=== PATIENT | male | born 1985 | race Caucasian/White ===

== ENCOUNTER 2017-06-12 08:30 | Emergency (ER) | payer SELFPAY | END 2017-06-12 21:23 | disposition left against medical advice (07) | LOC: E/R 08:30 | DX: Z53.21 Procedure and treatment not carried out due to patient leaving prior to being seen by health care provider (principal) ==

== ENCOUNTER 2017-06-14 22:48 | Emergency (ER) | payer SELFPAY | END 2017-06-14 23:53 | disposition left against medical advice (07) | LOC: E/R 22:48 | DX: Z53.21 Procedure and treatment not carried out due to patient leaving prior to being seen by health care provider (principal) ==

== ENCOUNTER 2017-08-02 19:46 | Emergency (ER) | payer SELFPAY | END 2017-08-03 00:14 | disposition left against medical advice (07) | LOC: E/R 19:46 | DX: Z53.21 Procedure and treatment not carried out due to patient leaving prior to being seen by health care provider (principal) ==

== ENCOUNTER 2017-08-07 14:07 | Emergency (ER) | payer SELFPAY ==
[2017-08-07] MEDS: FAMOTIDINE 20 MG TAB PO (14:39)
[2017-08-07] MEDS: ONDANSETRON 4 MG INJ IV (14:39)
[2017-08-07] MEDS: SOD CHLORIDE 0.9% 1,000 ML IV (14:40)
[2017-08-07] MEDS: PANTOPRAZOLE 40 MG INJ IV (14:40)
[2017-08-07 14:43] LABS: ADD MAN DIFF? NO
[2017-08-07 14:46] LABS: WHITE BLOOD COUNT 4.6 10^3/ul (4.8-10.8)
[2017-08-07 14:46] LABS: BASOPHILS % 0.4 % (0.0-2.0); HEMATOCRIT 31.8 % (42.0-52.0); HEMOGLOBIN 11.5 g/dl (14.0-18.0); LYMPHOCYTES # 0.9 10^3/ul (0.8-2.9); LYMPHOCYTES % 20.4 % (15.0-51.0); MEAN CORPUSCULAR HEMOGLOBIN 30.8 pg (29.0-33.0); MEAN CORPUSCULAR HGB CONC 36.2 g/dl (32.0-37.0); MEAN CORPUSCULAR VOLUME 85.3 fl (82.0-101.0); MEAN PLATELET VOLUME 9.9 fl (7.4-10.4); MONOCYTE # 0.3 10^3/ul (0.3-0.9); MONOCYTES % 5.5 % (0.0-11.0); NEUTROPHIL # 3.3 10^3/ul (1.6-7.5); NEUTROPHILS % 73.5 % (39.0-77.0); PLATELET COUNT 177 10^3/UL (140-415); RED BLOOD COUNT 3.73 10^6/ul (4.70-6.10); RED CELL DISTRIBUTION WIDTH 13.8 % (11.5-14.5)
[2017-08-07 15:02] LABS: ALANINE AMINOTRANSFERASE 40 IU/L (13-69); ALBUMIN 4.5 g/dl (3.3-4.9); ALBUMIN/GLOBULIN RATIO 1.55; ALKALINE PHOSPHATASE 65 IU/L (42-121); ANION GAP 25 (8-16); ASPARTATE AMINO TRANSFERASE 111 IU/L (15-46); BILIRUBIN,INDIRECT 1.1 mg/dl (0-1.1); BILIRUBIN,TOTAL 1.1 mg/dl (0.2-1.3); BLOOD UREA NITROGEN 9 mg/dl (7-20); CALCIUM 8.3 mg/dl (8.4-10.2); CARBON DIOXIDE 21 mmol/L (21-31); CHLORIDE 98 mmol/L (97-110); CREATININE 0.63 mg/dl (0.61-1.24); GLUCOSE 147 mg/dl (70-220); LIPASE 83 U/L (23-300); POTASSIUM 3.2 mmol/L (3.5-5.1); SODIUM 141 mmol/L (135-144); TOTAL PROTEIN 7.4 g/dl (6.1-8.1)
[2017-08-07 15:08] LABS: PROTIME 12.2 Sec (11.9-14.9)
[2017-08-07 15:09] LABS: PARTIAL THROMBOPLASTIN TIME 27.5 Sec (25.0-35.0)
[2017-08-07 15:14] LABS: TROPONIN-I < 0.012 ng/ml (0.00-0.12)
== END 2017-08-07 16:49 | disposition home or self-care (01) ==
LOC: E/R 14:07
DX: F10.920 Alcohol use, unspecified with intoxication, uncomplicated (principal); K29.20 Alcoholic gastritis without bleeding; E86.0 Dehydration
CPT/HCPCS: 36415; 71045; 80053; 80306; 83690; 84484; 85025; 85610; 85730; 86850; 86900; 86901; 93005; 96374; 96375; 99285-25

== ENCOUNTER 2017-08-22 14:42 | Emergency (ER) | payer MEDICAID ==
[2017-08-22 20:01] LABS: ADD MAN DIFF? NO
[2017-08-22 20:10] LABS: BASOPHIL # 0.1 10^3/ul (0.0-0.1); BASOPHILS % 1.2 % (0.0-2.0); EOSINOPHILS % 0.2 % (0.0-7.0); HEMATOCRIT 36.4 % (42.0-52.0); HEMOGLOBIN 12.4 g/dl (14.0-18.0); LYMPHOCYTES # 1.6 10^3/ul (0.8-2.9); LYMPHOCYTES % 37.6 % (15.0-51.0); MEAN CORPUSCULAR HEMOGLOBIN 29.8 pg (29.0-33.0); MEAN CORPUSCULAR HGB CONC 34.1 g/dl (32.0-37.0); MEAN CORPUSCULAR VOLUME 87.5 fl (82.0-101.0); MEAN PLATELET VOLUME 9.7 fl (7.4-10.4); MONOCYTE # 0.2 10^3/ul (0.3-0.9); MONOCYTES % 3.8 % (0.0-11.0); NEUTROPHIL # 2.4 10^3/ul (1.6-7.5); PLATELET COUNT 367 10^3/UL (140-415); RED BLOOD COUNT 4.16 10^6/ul (4.70-6.10); RED CELL DISTRIBUTION WIDTH 15.2 % (11.5-14.5)
[2017-08-22 20:10] LABS: WHITE BLOOD COUNT 4.2 10^3/ul (4.8-10.8)
[2017-08-22 20:20] LABS: OCCULT BLOOD STOOL NEGATIVE (NEGATIVE)
[2017-08-22 20:22] LABS: INR 1.09; PROTIME 14.2 Sec (11.9-14.9); PT RATIO 1.1
[2017-08-22] MEDS: SOD CHLORIDE 0.9% 1,000 ML IV (20:22)
[2017-08-22] MEDS: ONDANSETRON 4 MG INJ IV ×2 (20:22→23:43)
[2017-08-22 20:23] LABS: ALANINE AMINOTRANSFERASE 30 IU/L (13-69); ALBUMIN 4.6 g/dl (3.3-4.9); ALBUMIN/GLOBULIN RATIO 1.39; ALKALINE PHOSPHATASE 56 IU/L (42-121); ANION GAP 19 (8-16); ASPARTATE AMINO TRANSFERASE 39 IU/L (15-46); BILIRUBIN,INDIRECT 0.2 mg/dl (0-1.1); BILIRUBIN,TOTAL 0.2 mg/dl (0.2-1.3); BLOOD UREA NITROGEN 14 mg/dl (7-20); CALCIUM 8.5 mg/dl (8.4-10.2); CARBON DIOXIDE 27 mmol/L (21-31); CHLORIDE 107 mmol/L (97-110); CREATININE 0.71 mg/dl (0.61-1.24); GLUCOSE 126 mg/dl (70-220); PARTIAL THROMBOPLASTIN TIME 33.7 Sec (25.0-35.0); POTASSIUM 4.2 mmol/L (3.5-5.1); SODIUM 149 mmol/L (135-144); TOTAL PROTEIN 7.9 g/dl (6.1-8.1)
[2017-08-22 20:35] LABS: TROPONIN-I < 0.012 ng/ml (0.00-0.12)
[2017-08-22] MEDS: PANTOPRAZOLE IV 80 MG in SOD CHLORIDE 0.9% 100 ML IVPB (20:44)
[2017-08-22 21:36] LABS: AMPHETAMINE/METHAMPHETAMINE Negative (NEGATIVE); BARBITURATES Negative (NEGATIVE); BENZODIAZEPINES Positive (NEGATIVE); CANNABINOIDS Negative (NEGATIVE); COCAINE Negative (NEGATIVE); OPIATES Positive (NEGATIVE)
[2017-08-22] MEDS: FENTAnyl 50 MCG/ML VIAL IV (23:43)
[2017-08-23] MEDS: LIDOCAINE/MYLANTA 40 ML BTL PO (00:07)
== END 2017-08-23 01:52 | disposition home or self-care (01) ==
LOC: E/R 08-23 01:52
DX: R10.13 Epigastric pain (principal); K92.0 Hematemesis; F10.929 Alcohol use, unspecified with intoxication, unspecified; D64.9 Anemia, unspecified; F13.10 Sedative, hypnotic or anxiolytic abuse, uncomplicated
CPT/HCPCS: 36415; 71045; 80053; 80306; 80307; 82270; 84484; 85025; 85610; 85730; 86850; 86900; 86901; 93005; 96361; 96365; 96375; 99285-25

== ENCOUNTER 2017-08-24 13:10 | Emergency (ER) | payer MEDICAID ==
[2017-08-24] MEDS: SOD CHLORIDE 0.9% 1,000 ML IV (14:50)
[2017-08-24] MEDS: BELLADONNA/PHENOBARBITAL TAB PO (14:51)
[2017-08-24] MEDS: LORAZEPAM 2 MG INJ IV (14:51)
[2017-08-24] MEDS: LIDOCAINE/MYLANTA 40 ML BTL PO (14:51)
[2017-08-24] MEDS: ONDANSETRON 4 MG INJ IV (14:51)
[2017-08-24] MEDS: FAMOTIDINE 20 MG TAB PO (14:52)
[2017-08-24 15:02] LABS: ADD MAN DIFF? NO
[2017-08-24 15:03] LABS: BASOPHILS % 0.7 % (0.0-2.0); HEMATOCRIT 34.5 % (42.0-52.0); HEMOGLOBIN 11.7 g/dl (14.0-18.0); LYMPHOCYTES # 0.8 10^3/ul (0.8-2.9); LYMPHOCYTES % 26.8 % (15.0-51.0); MEAN CORPUSCULAR HEMOGLOBIN 29.8 pg (29.0-33.0); MEAN CORPUSCULAR HGB CONC 33.9 g/dl (32.0-37.0); MEAN CORPUSCULAR VOLUME 87.8 fl (82.0-101.0); MEAN PLATELET VOLUME 10.2 fl (7.4-10.4); MONOCYTE # 0.3 10^3/ul (0.3-0.9); MONOCYTES % 8.7 % (0.0-11.0); NEUTROPHIL # 1.8 10^3/ul (1.6-7.5); NEUTROPHILS % 62.5 % (39.0-77.0); PLATELET COUNT 334 10^3/UL (140-415); RED BLOOD COUNT 3.93 10^6/ul (4.70-6.10); RED CELL DISTRIBUTION WIDTH 13.9 % (11.5-14.5)
[2017-08-24 15:03] LABS: WHITE BLOOD COUNT 2.9 10^3/ul (4.8-10.8)
[2017-08-24 15:25] LABS: ALANINE AMINOTRANSFERASE 38 IU/L (13-69); ALBUMIN 4.2 g/dl (3.3-4.9); ALBUMIN/GLOBULIN RATIO 1.35; ALKALINE PHOSPHATASE 57 IU/L (42-121); ANION GAP 17 (8-16); ASPARTATE AMINO TRANSFERASE 60 IU/L (15-46); BILIRUBIN,INDIRECT 1.2 mg/dl (0-1.1); BILIRUBIN,TOTAL 1.2 mg/dl (0.2-1.3); BLOOD UREA NITROGEN 6 mg/dl (7-20); CALCIUM 9.1 mg/dl (8.4-10.2); CARBON DIOXIDE 26 mmol/L (21-31); CHLORIDE 99 mmol/L (97-110); CREATININE 0.68 mg/dl (0.61-1.24); GLUCOSE 89 mg/dl (70-220); LIPASE 51 U/L (23-300); POTASSIUM 4.1 mmol/L (3.5-5.1); SODIUM 138 mmol/L (135-144); TOTAL PROTEIN 7.3 g/dl (6.1-8.1)
[2017-08-24 15:38] LABS: TROPONIN-I < 0.012 ng/ml (0.00-0.12)
== END 2017-08-24 17:12 | disposition left against medical advice (07) ==
LOC: E/R 17:12
DX: K29.21 Alcoholic gastritis with bleeding (principal); F10.920 Alcohol use, unspecified with intoxication, uncomplicated; R10.13 Epigastric pain; Z76.5 Malingerer [conscious simulation]
CPT/HCPCS: 36415; 80053; 83690; 84484; 85025; 93005; 96374; 96375; 99284-25

== ENCOUNTER 2017-09-03 23:35 | Emergency (ER) | payer SELFPAY, MEDICAID | END 2017-09-04 00:47 | disposition left against medical advice (07) | LOC: E/R 23:35 | DX: Z53.21 Procedure and treatment not carried out due to patient leaving prior to being seen by health care provider (principal) ==

== ENCOUNTER 2017-09-05 02:33 | Emergency (ER) | payer MEDICAID ==
[2017-09-05 03:53] LABS: ADD MAN DIFF? NO
[2017-09-05 04:03] LABS: WHITE BLOOD COUNT 4.7 10^3/ul (4.8-10.8)
[2017-09-05 04:03] LABS: BASOPHILS % 0.8 % (0.0-2.0); EOSINOPHILS % 0.4 % (0.0-7.0); HEMATOCRIT 32.6 % (42.0-52.0); HEMOGLOBIN 11.1 g/dl (14.0-18.0); LYMPHOCYTES # 2.3 10^3/ul (0.8-2.9); LYMPHOCYTES % 47.8 % (15.0-51.0); MEAN CORPUSCULAR HEMOGLOBIN 29.9 pg (29.0-33.0); MEAN CORPUSCULAR VOLUME 87.9 fl (82.0-101.0); MEAN PLATELET VOLUME 10.4 fl (7.4-10.4); MONOCYTE # 0.3 10^3/ul (0.3-0.9); MONOCYTES % 6.8 % (0.0-11.0); NEUTROPHIL # 2.1 10^3/ul (1.6-7.5); NEUTROPHILS % 44.2 % (39.0-77.0); PLATELET COUNT 133 10^3/UL (140-415); RED BLOOD COUNT 3.71 10^6/ul (4.70-6.10); URINE BLOOD (Dip) POC Negative (NEGATIVE); URINE GLUCOSE (Dip) POC Negative (NEGATIVE); URINE KETONES (Dip) POC Negative (NEGATIVE); URINE LEUKOCYTE EST (Dip) POC Negative (NEGATIVE); URINE NITRITE (Dip) POC Negative (NEGATIVE); URINE TOTAL PROTEIN POC Negative (NEGATIVE)
[2017-09-05 04:13] LABS: INR 0.87; PROTIME 11.9 Sec (11.9-14.9); PT RATIO 0.9
[2017-09-05 04:14] LABS: PARTIAL THROMBOPLASTIN TIME 28.6 Sec (25.0-35.0)
[2017-09-05 04:21] LABS: ALANINE AMINOTRANSFERASE 18 IU/L (13-69); ALBUMIN 4.6 g/dl (3.3-4.9); ALBUMIN/GLOBULIN RATIO 1.35; ALKALINE PHOSPHATASE 78 IU/L (42-121); ANION GAP 26 (8-16); ASPARTATE AMINO TRANSFERASE 26 IU/L (15-46); BILIRUBIN,INDIRECT 0.1 mg/dl (0-1.1); BILIRUBIN,TOTAL 0.1 mg/dl (0.2-1.3); BLOOD UREA NITROGEN 8 mg/dl (7-20); CALCIUM 8.9 mg/dl (8.4-10.2); CARBON DIOXIDE 25 mmol/L (21-31); CHLORIDE 108 mmol/L (97-110); CREATININE 0.74 mg/dl (0.61-1.24); GLUCOSE 148 mg/dl (70-220); LIPASE 105 U/L (23-300); POTASSIUM 3.4 mmol/L (3.5-5.1); SODIUM 156 mmol/L (135-144)
[2017-09-05] MEDS: SOD CHLORIDE 0.9% 1,000 ML IV (05:16)
[2017-09-05] MEDS: LIDOCAINE/MYLANTA 40 ML BTL PO (05:17)
[2017-09-05] MEDS: POTASSIUM CHLORIDE (SR) 20 MEQ TAB PO (05:17)
[2017-09-05] MEDS: LORAZEPAM 1 MG TAB PO (05:17)
[2017-09-05] MEDS ORDERED: HALOPERIDOL 5 MG INJ (06:03)
[2017-09-05] MEDS: HALOPERIDOL 5 MG INJ IM (06:09)
== END 2017-09-05 14:30 | disposition home or self-care (01) ==
LOC: E/R 02:33
DX: K29.20 Alcoholic gastritis without bleeding (principal); E87.6 Hypokalemia; D61.818 Other pancytopenia; E87.0 Hyperosmolality and hypernatremia; R45.851 Suicidal ideations; R40.2142 Coma scale, eyes open, spontaneous, at arrival to emergency department; R40.2252 Coma scale, best verbal response, oriented, at arrival to emergency department; R40.2362 Coma scale, best motor response, obeys commands, at arrival to emergency department
CPT/HCPCS: 74176; 80053; 80306; 81003; 82962; 83690; 85025; 85610; 85730; 86850; 86900; 86901; 96372; 99285-25

== ENCOUNTER 2017-09-06 15:17 | Emergency (ER) | payer MEDICAID ==
[2017-09-06 16:23] LABS: ABNORMAL IP MESSAGE 1; HEMATOCRIT 36.2 % (42.0-52.0); HEMOGLOBIN 11.9 g/dl (14.0-18.0); MEAN CORPUSCULAR HEMOGLOBIN 29.2 pg (29.0-33.0); MEAN CORPUSCULAR HGB CONC 32.9 g/dl (32.0-37.0); MEAN CORPUSCULAR VOLUME 88.9 fl (82.0-101.0); PLATELET COUNT 147 10^3/UL (140-415); POSITIVE DIFF @See below; RED BLOOD COUNT 4.07 10^6/ul (4.70-6.10); RED CELL DISTRIBUTION WIDTH 14.9 % (11.5-14.5)
[2017-09-06 16:23] LABS: WHITE BLOOD COUNT 2.4 10^3/ul (4.8-10.8)
[2017-09-06 16:30] LABS: ADD MAN DIFF? YES
[2017-09-06 16:49] LABS: ALANINE AMINOTRANSFERASE 22 IU/L (13-69); ALBUMIN 4.9 g/dl (3.3-4.9); ALBUMIN/GLOBULIN RATIO 1.36; ALKALINE PHOSPHATASE 65 IU/L (42-121); ANION GAP 25 (8-16); ASPARTATE AMINO TRANSFERASE 48 IU/L (15-46); BILIRUBIN,INDIRECT 0.1 mg/dl (0-1.1); BILIRUBIN,TOTAL 0.1 mg/dl (0.2-1.3); BLOOD UREA NITROGEN 8 mg/dl (7-20); CALCIUM 8.6 mg/dl (8.4-10.2); CARBON DIOXIDE 26 mmol/L (21-31); CHLORIDE 104 mmol/L (97-110); CREATININE 0.55 mg/dl (0.61-1.24); GLUCOSE 107 mg/dl (70-220); LIPASE 47 U/L (23-300); POTASSIUM 3.7 mmol/L (3.5-5.1); SODIUM 151 mmol/L (135-144); TOTAL PROTEIN 8.5 g/dl (6.1-8.1)
[2017-09-06 17:03] LABS: EOSINOPHILS % (M) 1 % (0-7); GIANT THROMBO% (M) 1 % (0-0); LYMPHOCYTES #M 1.3 10^3/ul (0.8-2.9); LYMPHOCYTES % (M) 57 % (15-51); MONOCYTE #M 0.1 10^3/ul (0.3-0.9); MONOCYTES % (M) 7 % (0-11); PLATELET ESTIMATE NORMAL; REACTIVE LYMPHOCYTES% (M) 2 % (0-0); SEGMENTED NEUTROPHILS (M) % 33 % (39-77)
[2017-09-06 17:29] LABS: BARBITURATES Negative (NEGATIVE)
[2017-09-06 17:34] LABS: AMPHETAMINE/METHAMPHETAMINE Negative (NEGATIVE); BENZODIAZEPINES Positive (NEGATIVE); CANNABINOIDS Negative (NEGATIVE); COCAINE Negative (NEGATIVE); OPIATES Negative (NEGATIVE)
[2017-09-06] MEDS: FAMOTIDINE 20 MG TAB PO (18:39)
[2017-09-06] MEDS: LIDOCAINE/MYLANTA 40 ML BTL PO (18:39)
== END 2017-09-06 23:50 | disposition home or self-care (01) ==
LOC: E/R 23:50
DX: F10.929 Alcohol use, unspecified with intoxication, unspecified (principal); D72.819 Decreased white blood cell count, unspecified; Z76.5 Malingerer [conscious simulation]
CPT/HCPCS: 36415; 80053; 80306; 80307; 83690; 85025; 99285-25

== ENCOUNTER 2017-09-13 13:45 | Inpatient (IN) | payer MEDICAID ==
[2017-09-13] MEDS: ONDANSETRON 4 MG INJ IV (15:18)
[2017-09-13] MEDS: KETOROLAC 15 MG INJ IV (15:18)
[2017-09-13] MEDS: LORAZEPAM 2 MG INJ IV (15:18)
[2017-09-13 15:25] LABS: ADD MAN DIFF? NO
[2017-09-13 15:28] LABS: ABNORMAL IP MESSAGE 1; BASOPHILS % 0.4 % (0.0-2.0); HEMATOCRIT 28.3 % (42.0-52.0); HEMOGLOBIN 9.7 g/dl (14.0-18.0); LYMPHOCYTES # 0.5 10^3/ul (0.8-2.9); LYMPHOCYTES % 8.9 % (15.0-51.0); MEAN CORPUSCULAR HEMOGLOBIN 29.8 pg (29.0-33.0); MEAN CORPUSCULAR HGB CONC 34.3 g/dl (32.0-37.0); MEAN CORPUSCULAR VOLUME 86.8 fl (82.0-101.0); MEAN PLATELET VOLUME 10.6 fl (7.4-10.4); MONOCYTE # 0.4 10^3/ul (0.3-0.9); MONOCYTES % 6.5 % (0.0-11.0); NEUTROPHIL # 4.6 10^3/ul (1.6-7.5); NEUTROPHILS % 83.7 % (39.0-77.0); PLATELET COUNT 78 10^3/UL (140-415); POSITIVE DIFF @See below; RED BLOOD COUNT 3.26 10^6/ul (4.70-6.10); RED CELL DISTRIBUTION WIDTH 14.9 % (11.5-14.5)
[2017-09-13 15:28] LABS: WHITE BLOOD COUNT 5.5 10^3/ul (4.8-10.8)
[2017-09-13] MEDS: MULTIVITAMINS 10 ML, THIAMINE 100 MG, FOLIC ACID 1 MG, MAGNESIUM SULFATE 2 GM in SOD CH... IV (16:11)
[2017-09-13 16:23] LABS: ALANINE AMINOTRANSFERASE 258 IU/L (13-69); ALBUMIN 3.5 g/dl (3.3-4.9); ALBUMIN/GLOBULIN RATIO 1.29; ALKALINE PHOSPHATASE 53 IU/L (42-121); ANION GAP 11 (8-16); BILIRUBIN,INDIRECT 0.8 mg/dl (0-1.1); BILIRUBIN,TOTAL 0.8 mg/dl (0.2-1.3); BLOOD UREA NITROGEN 7 mg/dl (7-20); CALCIUM 7.7 mg/dl (8.4-10.2); CARBON DIOXIDE 28 mmol/L (21-31); CHLORIDE 104 mmol/L (97-110); GLUCOSE 112 mg/dl (70-220); LIPASE 102 U/L (23-300); POTASSIUM 3.1 mmol/L (3.5-5.1); SODIUM 140 mmol/L (135-144); TOTAL PROTEIN 6.2 g/dl (6.1-8.1)
[2017-09-13 16:29] LABS: ASPARTATE AMINO TRANSFERASE 824 IU/L (15-46)
[2017-09-13 16:40] LABS: ETHANOL < 10.0 mg/dl
[2017-09-13] MEDS: POTASSIUM CHLORIDE (SR) 20 MEQ TAB PO ×2 (16:57→23:56)
[2017-09-13] MEDS: KETOROLAC 15 MG INJ IM (17:21)
[2017-09-13 18:18] LABS: URINE BLOOD (Dip) POC 2+ (NEGATIVE); URINE KETONES (Dip) POC 3+ (NEGATIVE); URINE LEUKOCYTE EST (Dip) POC Negative (NEGATIVE); URINE NITRITE (Dip) POC Negative (NEGATIVE); URINE TOTAL PROTEIN POC 2+ (NEGATIVE)
[2017-09-13] MEDS: SOD CHLORIDE 0.9% 100 ML (21:29)
[2017-09-13] MEDS: IOHEXOL 300MG/ML 150 ML BTL (21:29)
[2017-09-13] MEDS: morphine 4 MG/ML VIAL IV (21:48)
[2017-09-13] MEDS ORDERED: LORAZEPAM 1 MG TAB PO (23:30)
[2017-09-13] MEDS ORDERED: ACETAMINOPHEN 325 MG TAB PO (23:30)
[2017-09-13] MEDS ORDERED: DOCUSATE SODIUM 100 MG CAP PO (23:30)
[2017-09-13] MEDS ORDERED: NACL 0.9% 3 ML SYG IV (23:30)
[2017-09-14] MEDS: HYDROCODONE/APAP (5/325) TAB PO ×3 (00:04→23:55)
[2017-09-14] MEDS: morphine 2 MG INJ IV ×5 (00:05→18:26)
[2017-09-14] MEDS: LORAZEPAM 2 MG INJ IV (00:05)
[2017-09-14] MEDS: HYDROmorphONE 0.5 MG/0.5 ML SYG IV ×2 (03:01→22:36)
[2017-09-14 05:30] LABS: ADD MAN DIFF? NO
[2017-09-14] MEDS: PANTOPRAZOLE (EC) 40 MG TAB PO (05:31)
[2017-09-14] MEDS: ONDANSETRON 4 MG INJ IV ×2 (05:31→17:54)
[2017-09-14 05:37] LABS: ABNORMAL IP MESSAGE 1; BASOPHILS % 0.2 % (0.0-2.0); EOSINOPHILS % 0.2 % (0.0-7.0); HEMATOCRIT 28.9 % (42.0-52.0); HEMOGLOBIN 9.7 g/dl (14.0-18.0); LYMPHOCYTES # 0.9 10^3/ul (0.8-2.9); LYMPHOCYTES % 21.5 % (15.0-51.0); MEAN CORPUSCULAR HEMOGLOBIN 29.6 pg (29.0-33.0); MEAN CORPUSCULAR HGB CONC 33.6 g/dl (32.0-37.0); MEAN CORPUSCULAR VOLUME 88.1 fl (82.0-101.0); MONOCYTE # 0.2 10^3/ul (0.3-0.9); MONOCYTES % 5.7 % (0.0-11.0); NEUTROPHIL # 2.9 10^3/ul (1.6-7.5); NEUTROPHILS % 71.9 % (39.0-77.0); PLATELET COUNT 70 10^3/UL (140-415); POSITIVE DIFF @See below; RED BLOOD COUNT 3.28 10^6/ul (4.70-6.10); RED CELL DISTRIBUTION WIDTH 14.7 % (11.5-14.5)
[2017-09-14 05:37] LABS: WHITE BLOOD COUNT 4.1 10^3/ul (4.8-10.8)
[2017-09-14 05:45] LABS: ALANINE AMINOTRANSFERASE 258 IU/L (13-69); ALBUMIN 3.9 g/dl (3.3-4.9); ALBUMIN/GLOBULIN RATIO 1.39; ALKALINE PHOSPHATASE 54 IU/L (42-121); ANION GAP 12 (8-16); ASPARTATE AMINO TRANSFERASE 706 IU/L (15-46); BILIRUBIN,INDIRECT 0.8 mg/dl (0-1.1); BILIRUBIN,TOTAL 0.8 mg/dl (0.2-1.3); BLOOD UREA NITROGEN 9 mg/dl (7-20); CALCIUM 8.5 mg/dl (8.4-10.2); CARBON DIOXIDE 32 mmol/L (21-31); CHLORIDE 97 mmol/L (97-110); CREATININE 0.51 mg/dl (0.61-1.24); GLUCOSE 86 mg/dl (70-220); MAGNESIUM 2.2 mg/dl (1.7-2.5); POTASSIUM 3.4 mmol/L (3.5-5.1); SODIUM 138 mmol/L (135-144); TOTAL PROTEIN 6.7 g/dl (6.1-8.1)
[2017-09-14] MEDS: POTASSIUM CHLORIDE (SR) 20 MEQ TAB PO (09:17)
[2017-09-14] MEDS ORDERED: METOCLOPRAMIDE 10 MG INJ IV (09:30)
[2017-09-14] MEDS: METOCLOPRAMIDE 10 MG INJ IV ×3 (09:52→22:05)
[2017-09-15] MEDS: HYDROmorphONE 0.5 MG/0.5 ML SYG IV ×6 (02:36→19:50)
[2017-09-15] MEDS: METOCLOPRAMIDE 10 MG INJ IV ×4 (03:39→21:49)
[2017-09-15] MEDS: PANTOPRAZOLE (EC) 40 MG TAB PO (05:36)
[2017-09-15 06:46] LABS: ADD MAN DIFF? NO
[2017-09-15 06:50] LABS: WHITE BLOOD COUNT 4.7 10^3/ul (4.8-10.8)
[2017-09-15 06:50] LABS: ABNORMAL IP MESSAGE 1; BASOPHILS % 0.4 % (0.0-2.0); EOSINOPHILS % 0.8 % (0.0-7.0); HEMATOCRIT 28.4 % (42.0-52.0); HEMOGLOBIN 9.7 g/dl (14.0-18.0); LYMPHOCYTES # 0.9 10^3/ul (0.8-2.9); LYMPHOCYTES % 19.5 % (15.0-51.0); MEAN CORPUSCULAR HGB CONC 34.2 g/dl (32.0-37.0); MEAN CORPUSCULAR VOLUME 87.9 fl (82.0-101.0); MONOCYTE # 0.2 10^3/ul (0.3-0.9); MONOCYTES % 4.7 % (0.0-11.0); NEUTROPHIL # 3.5 10^3/ul (1.6-7.5); NEUTROPHILS % 74.4 % (39.0-77.0); PLATELET COUNT 83 10^3/UL (140-415); POSITIVE DIFF @See below; RED BLOOD COUNT 3.23 10^6/ul (4.70-6.10); RED CELL DISTRIBUTION WIDTH 14.6 % (11.5-14.5)
[2017-09-15 07:33] LABS: INR 0.88; PT RATIO 0.9
[2017-09-15 07:34] LABS: PARTIAL THROMBOPLASTIN TIME 29.3 Sec (25.0-35.0)
[2017-09-15 07:48] LABS: ALANINE AMINOTRANSFERASE 223 IU/L (13-69); ALBUMIN/GLOBULIN RATIO 1.21; ALKALINE PHOSPHATASE 58 IU/L (42-121); ANION GAP 14 (8-16); ASPARTATE AMINO TRANSFERASE 518 IU/L (15-46); BILIRUBIN,INDIRECT 0.6 mg/dl (0-1.1); BILIRUBIN,TOTAL 0.6 mg/dl (0.2-1.3); BLOOD UREA NITROGEN 9 mg/dl (7-20); CARBON DIOXIDE 30 mmol/L (21-31); CHLORIDE 94 mmol/L (97-110); CREATININE 0.57 mg/dl (0.61-1.24); GLUCOSE 95 mg/dl (70-220); POTASSIUM 3.6 mmol/L (3.5-5.1); SODIUM 134 mmol/L (135-144); TOTAL PROTEIN 7.3 g/dl (6.1-8.1)
[2017-09-15] MEDS: HYDROCODONE/APAP (5/325) TAB PO ×4 (08:22→21:50)
[2017-09-15] MEDS: ONDANSETRON 4 MG INJ IV ×2 (12:15→19:58)
[2017-09-15] MEDS: LORAZEPAM 2 MG INJ IV ×3 (12:37→23:24)
[2017-09-16] MEDS: HYDROmorphONE 0.5 MG/0.5 ML SYG IV ×6 (01:57→23:51)
[2017-09-16] MEDS: ONDANSETRON 4 MG INJ IV ×3 (01:57→19:48)
[2017-09-16] MEDS: METOCLOPRAMIDE 10 MG INJ IV ×4 (03:54→21:52)
[2017-09-16] MEDS: HYDROCODONE/APAP (5/325) TAB PO ×4 (03:54→21:52)
[2017-09-16] MEDS: PANTOPRAZOLE (EC) 40 MG TAB PO (06:00)
[2017-09-16] MEDS: LORAZEPAM 2 MG INJ IV (13:38)
[2017-09-17] MEDS: LORAZEPAM 2 MG INJ IV (02:14)
[2017-09-17] MEDS: ONDANSETRON 4 MG INJ IV ×4 (02:14→23:07)
[2017-09-17] MEDS: METOCLOPRAMIDE 10 MG INJ IV ×4 (04:07→21:52)
[2017-09-17] MEDS: HYDROmorphONE 0.5 MG/0.5 ML SYG IV ×5 (04:08→20:38)
[2017-09-17] MEDS: PANTOPRAZOLE (EC) 40 MG TAB PO (06:06)
[2017-09-17] MEDS: HYDROCODONE/APAP (5/325) TAB PO (08:09)
[2017-09-17] MEDS: BACLOFEN 10 MG TAB PO ×2 (17:46→20:38)
[2017-09-18] MEDS: LORAZEPAM 2 MG INJ IV ×2 (00:03→22:57)
[2017-09-18] MEDS: HYDROmorphONE 0.5 MG/0.5 ML SYG IV ×4 (01:30→14:13)
[2017-09-18] MEDS: METOCLOPRAMIDE 10 MG INJ IV ×4 (04:38→21:54)
[2017-09-18] MEDS: PANTOPRAZOLE (EC) 40 MG TAB PO (05:35)
[2017-09-18] MEDS: BACLOFEN 10 MG TAB PO ×3 (08:46→20:30)
[2017-09-18] MEDS: HYDROCODONE/APAP (5/325) TAB PO (13:05)
[2017-09-18] MEDS: HYDROCODONE/APAP (7.5/325) TAB NGT (19:40)
[2017-09-19] MEDS: METOCLOPRAMIDE 10 MG INJ IV ×2 (04:00→09:49)
[2017-09-19] MEDS: PANTOPRAZOLE (EC) 40 MG TAB PO (06:00)
[2017-09-19] MEDS: HYDROCODONE/APAP (7.5/325) TAB NGT (09:49)
[2017-09-19] MEDS: LORAZEPAM 2 MG INJ IV (09:49)
[2017-09-19] MEDS: BACLOFEN 10 MG TAB PO ×2 (09:49→13:00)
== END 2017-09-19 13:20 | disposition home or self-care (01) | DRG 552 ==
LOC: PP2 23:23 → FTE 13:45
DX: S32.039A Unspecified fracture of third lumbar vertebra, initial encounter for closed fracture (principal); S30.1XXA Contusion of abdominal wall, initial encounter; T14.8XXA Other injury of unspecified body region, initial encounter; K70.10 Alcoholic hepatitis without ascites; E87.6 Hypokalemia; K76.0 Fatty (change of) liver, not elsewhere classified; Y08.02XA Assault by strike by baseball bat, initial encounter
CPT/HCPCS: 70450; 71100; 74176; 74177; 80053; 80306; 81003; 82962; 83690; 83735; 85025; 85610; 85730; 96372; 96374; 96375; 96376; 97116; 97163; 97530; 99285-25; G0378

== ENCOUNTER 2017-11-07 23:54 | Emergency (ER) | payer MEDICAID ==
[2017-11-08 01:13] LABS: ABNORMAL IP MESSAGE 1; HEMATOCRIT 38.6 % (42.0-52.0); HEMOGLOBIN 13.2 g/dl (14.0-18.0); MEAN CORPUSCULAR HEMOGLOBIN 27.3 pg (29.0-33.0); MEAN CORPUSCULAR HGB CONC 34.2 g/dl (32.0-37.0); MEAN CORPUSCULAR VOLUME 79.9 fl (82.0-101.0); MEAN PLATELET VOLUME 9.8 fl (7.4-10.4); PLATELET COUNT 292 10^3/UL (140-415); POSITIVE DIFF @See below; RED BLOOD COUNT 4.83 10^6/ul (4.70-6.10)
[2017-11-08 01:13] LABS: WHITE BLOOD COUNT 2.8 10^3/ul (4.8-10.8)
[2017-11-08 01:21] LABS: ADD MAN DIFF? YES
[2017-11-08 01:31] LABS: ALANINE AMINOTRANSFERASE 26 IU/L (13-69); ALBUMIN 4.7 g/dl (3.3-4.9); ALBUMIN/GLOBULIN RATIO 1.62; ALKALINE PHOSPHATASE 75 IU/L (42-121); ANION GAP 22 (8-16); ASPARTATE AMINO TRANSFERASE 39 IU/L (15-46); BILIRUBIN,INDIRECT 0.6 mg/dl (0-1.1); BILIRUBIN,TOTAL 0.6 mg/dl (0.2-1.3); BLOOD UREA NITROGEN 7 mg/dl (7-20); CALCIUM 8.2 mg/dl (8.4-10.2); CARBON DIOXIDE 25 mmol/L (21-31); CHLORIDE 103 mmol/L (97-110); CREATININE 0.65 mg/dl (0.61-1.24); GLUCOSE 104 mg/dl (70-220); LIPASE 43 U/L (23-300); POTASSIUM 3.8 mmol/L (3.5-5.1); SODIUM 146 mmol/L (135-144); TOTAL PROTEIN 7.6 g/dl (6.1-8.1)
[2017-11-08 01:32] LABS: INR 0.99; PROTIME 13.2 Sec (11.9-14.9)
[2017-11-08] MEDS: PANTOPRAZOLE 40 MG INJ IV (01:57)
[2017-11-08 02:22] LABS: ANISOCYTOSIS 2+ (0-0); BAND NEUTROPHILS % (M) 1 % (0-4); LYMPHOCYTES % (M) 37 % (15-51); MICROCYTOSIS 2+ (0-0); MONOCYTE #M 0.1 10^3/ul (0.3-0.9); MONOCYTES % (M) 5 % (0-11); PLATELET ESTIMATE NORMAL; POLYCHROMASIA 3+ (0-0); REACTIVE LYMPHOCYTES #M 0.6 10^3/ul (0.0-0.0); REACTIVE LYMPHOCYTES% (M) 24 % (0-0); SEGMENTED NEUTROPHILS (M) % 34 % (39-77); SMUDGE%M 12 % (0-0)
[2017-11-08 02:29] LABS: OCCULT BLOOD STOOL NEGATIVE (NEGATIVE)
== END 2017-11-08 07:30 | disposition home or self-care (01) ==
LOC: E/R 23:54
DX: K29.20 Alcoholic gastritis without bleeding (principal); F10.10 Alcohol abuse, uncomplicated; D72.819 Decreased white blood cell count, unspecified; R10.13 Epigastric pain
CPT/HCPCS: 36415; 80053; 80307; 82270; 83690; 85025; 85610; 85730; 86850; 86900; 86901; 93005; 96374; 99284-25

== ENCOUNTER 2017-11-14 00:24 | Emergency (ER) | payer SELFPAY, MEDICAID | END 2017-11-14 00:59 | disposition left against medical advice (07) | LOC: E/R 00:24 | DX: Z53.21 Procedure and treatment not carried out due to patient leaving prior to being seen by health care provider (principal) ==

== ENCOUNTER 2017-11-15 15:28 | Emergency (ER) | payer MEDICAID ==
[2017-11-15] MEDS: HYDROCODONE/APAP (5/325) TAB PO (16:03)
[2017-11-15] MEDS: ONDANSETRON (ODT) 4 MG TAB ODT (16:03)
[2017-11-15] MEDS: KETOROLAC 60 MG INJ IM (16:04)
== END 2017-11-15 17:50 | disposition home or self-care (01) ==
LOC: FTE 15:28
DX: S00.81XA Abrasion of other part of head, initial encounter (principal); F17.210 Nicotine dependence, cigarettes, uncomplicated; Y04.2XXA Assault by strike against or bumped into by another person, initial encounter
CPT/HCPCS: 72100; 74176; 96372; 99285-25

== ENCOUNTER 2017-12-16 17:18 | Emergency (ER) | payer MEDICAID ==
[2017-12-16 20:55] LABS: ADD MAN DIFF? NO
[2017-12-16 21:04] LABS: WHITE BLOOD COUNT 3.1 10^3/ul (4.8-10.8)
[2017-12-16 21:04] LABS: BASOPHILS % 0.6 % (0.0-2.0); HEMATOCRIT 38.2 % (42.0-52.0); HEMOGLOBIN 12.9 g/dl (14.0-18.0); LYMPHOCYTES # 1.4 10^3/ul (0.8-2.9); LYMPHOCYTES % 43.5 % (15.0-51.0); MEAN CORPUSCULAR HGB CONC 33.8 g/dl (32.0-37.0); MEAN CORPUSCULAR VOLUME 80.1 fl (82.0-101.0); MEAN PLATELET VOLUME 10.1 fl (7.4-10.4); MONOCYTE # 0.1 10^3/ul (0.3-0.9); MONOCYTES % 3.8 % (0.0-11.0); NEUTROPHIL # 1.6 10^3/ul (1.6-7.5); NEUTROPHILS % 51.8 % (39.0-77.0); PLATELET COUNT 213 10^3/UL (140-415); RED BLOOD COUNT 4.77 10^6/ul (4.70-6.10); RED CELL DISTRIBUTION WIDTH 16.7 % (11.5-14.5)
== END 2017-12-17 00:50 | disposition home or self-care (01) ==
LOC: E/R 12-17 00:50
DX: F10.129 Alcohol abuse with intoxication, unspecified (principal); K62.5 Hemorrhage of anus and rectum; F17.210 Nicotine dependence, cigarettes, uncomplicated
CPT/HCPCS: 85025; 99283

== ENCOUNTER 2017-12-19 11:08 | Emergency (ER) | payer MEDICAID ==
[2017-12-19] MEDS: FAMOTIDINE 20 MG INJ IV (13:04)
[2017-12-19] MEDS: LIDOCAINE/MYLANTA 40 ML BTL PO (13:04)
[2017-12-19] MEDS: ONDANSETRON 4 MG INJ IV (13:04)
[2017-12-19] MEDS: BELLADONNA/PHENOBARBITAL TAB PO (13:04)
[2017-12-19 13:13] LABS: ADD MAN DIFF? NO
[2017-12-19] MEDS: LACTATED RINGER'S 1,000 ML IV (13:17)
[2017-12-19] MEDS: LORAZEPAM 2 MG INJ IV (13:17)
[2017-12-19 13:18] LABS: WHITE BLOOD COUNT 4.6 10^3/ul (4.8-10.8)
[2017-12-19 13:18] LABS: BASOPHILS % 0.2 % (0.0-2.0); HEMATOCRIT 35.4 % (42.0-52.0); HEMOGLOBIN 12.2 g/dl (14.0-18.0); IMMATURE GRANS #M 0.01 10^3/ul; IMMATURE GRANS % (M) 0.2 %; LYMPHOCYTES # 0.8 10^3/ul (0.8-2.9); LYMPHOCYTES % 17.2 % (15.0-51.0); MEAN CORPUSCULAR HEMOGLOBIN 27.6 pg (29.0-33.0); MEAN CORPUSCULAR HGB CONC 34.5 g/dl (32.0-37.0); MEAN CORPUSCULAR VOLUME 80.1 fl (82.0-101.0); MONOCYTE # 0.3 10^3/ul (0.3-0.9); MONOCYTES % 5.4 % (0.0-11.0); NEUTROPHIL # 3.5 10^3/ul (1.6-7.5); PLATELET COUNT 149 10^3/UL (140-415); RED BLOOD COUNT 4.42 10^6/ul (4.70-6.10); RED CELL DISTRIBUTION WIDTH 16.1 % (11.5-14.5)
[2017-12-19 13:36] LABS: ALANINE AMINOTRANSFERASE 34 IU/L (13-69); ALBUMIN 4.6 g/dl (3.3-4.9); ALBUMIN/GLOBULIN RATIO 1.43; ALKALINE PHOSPHATASE 67 IU/L (42-121); ANION GAP 20 (8-16); ASPARTATE AMINO TRANSFERASE 82 IU/L (15-46); BILIRUBIN,INDIRECT 1.7 mg/dl (0-1.1); BILIRUBIN,TOTAL 1.7 mg/dl (0.2-1.3); BLOOD UREA NITROGEN 7 mg/dl (7-20); CALCIUM 8.7 mg/dl (8.4-10.2); CARBON DIOXIDE 25 mmol/L (21-31); CHLORIDE 95 mmol/L (97-110); CREATININE 0.64 mg/dl (0.61-1.24); GLUCOSE 132 mg/dl (70-220); LIPASE 64 U/L (23-300); POTASSIUM 4.1 mmol/L (3.5-5.1); SODIUM 136 mmol/L (135-144); TOTAL PROTEIN 7.8 g/dl (6.1-8.1)
[2017-12-19] MEDS: morphine 4 MG/ML VIAL IV (13:46)
[2017-12-19 13:52] LABS: INR 0.97
[2017-12-19] MEDS: PANTOPRAZOLE IV 80 MG in SOD CHLORIDE 0.9% 100 ML IVPB (14:08)
[2017-12-19 15:14] LABS: ADD MAN DIFF? NO
[2017-12-19 15:24] LABS: ADD UMIC NO; UR ASCORBIC ACID NEGATIVE (NEGATIVE); UR BILIRUBIN (Dip) NEGATIVE (NEGATIVE); UR BLOOD (Dip) NEGATIVE (NEGATIVE); UR CLARITY CLEAR (CLEAR); UR COLOR STRAW (YELLOW); UR GLUCOSE (Dip) 1+ mg/dL (NEGATIVE); UR KETONES (Dip) 2+ mg/dL (NEGATIVE); UR LEUKOCYTE ESTERASE (Dip) NEGATIVE Leu/ul (NEGATIVE); UR NITRITE (Dip) NEGATIVE (NEGATIVE); UR SPECIFIC GRAVITY (Dip) 1.006 (1.003-1.030); UR TOTAL PROTEIN (Dip) NEGATIVE (NEGATIVE); UR UROBILINOGEN (Dip) NEGATIVE (NEGATIVE)
[2017-12-19 15:30] LABS: BASOPHILS % 0.6 % (0.0-2.0); HEMATOCRIT 34.8 % (42.0-52.0); IMMATURE GRANS #M 0 10^3/ul; IMMATURE GRANS % (M) 0 %; LYMPHOCYTES # 1.1 10^3/ul (0.8-2.9); LYMPHOCYTES % 33.2 % (15.0-51.0); MEAN CORPUSCULAR HEMOGLOBIN 27.5 pg (29.0-33.0); MEAN CORPUSCULAR HGB CONC 34.5 g/dl (32.0-37.0); MEAN CORPUSCULAR VOLUME 79.8 fl (82.0-101.0); MEAN PLATELET VOLUME 10.5 fl (7.4-10.4); MONOCYTE # 0.2 10^3/ul (0.3-0.9); NEUTROPHIL # 1.9 10^3/ul (1.6-7.5); NEUTROPHILS % 59.2 % (39.0-77.0); PLATELET COUNT 144 10^3/UL (140-415); RED BLOOD COUNT 4.36 10^6/ul (4.70-6.10); RED CELL DISTRIBUTION WIDTH 16.2 % (11.5-14.5)
[2017-12-19 15:30] LABS: WHITE BLOOD COUNT 3.3 10^3/ul (4.8-10.8)
== END 2017-12-19 16:31 | disposition home or self-care (01) ==
LOC: FTE 11:08 → E/R 16:31
DX: K29.21 Alcoholic gastritis with bleeding (principal)
CPT/HCPCS: 36415; 76705; 80053; 81003; 83690; 85025; 85610; 85730; 86850; 86900; 86901; 96374; 96375; 99285-25

== ENCOUNTER 2018-02-20 08:50 | Emergency (ER) | payer MEDICAID ==
[2018-02-20] MEDS: LORAZEPAM 1 MG TAB PO (10:36)
[2018-02-20] MEDS: ONDANSETRON (ODT) 4 MG TAB ODT (10:36)
== END 2018-02-20 11:53 | disposition left against medical advice (07) ==
LOC: FTE 08:50
DX: K29.20 Alcoholic gastritis without bleeding (principal)
CPT/HCPCS: 99283; Z7502

== ENCOUNTER 2018-05-16 09:42 | Emergency (ER) | payer MEDICAID ==
[2018-05-16] MEDS: SOD CHLORIDE 0.9% 1,000 ML IV (10:09)
[2018-05-16 10:20] LABS: ADD MAN DIFF? NO
[2018-05-16 10:22] LABS: WHITE BLOOD COUNT 4.7 10^3/ul (4.8-10.8)
[2018-05-16 10:22] LABS: BASOPHILS % 0.4 % (0.0-2.0); HEMATOCRIT 40.1 % (42.0-52.0); LYMPHOCYTES # 1.2 10^3/ul (0.8-2.9); LYMPHOCYTES % 25.4 % (15.0-51.0); MEAN CORPUSCULAR HEMOGLOBIN 27.8 pg (29.0-33.0); MEAN CORPUSCULAR HGB CONC 34.9 g/dl (32.0-37.0); MEAN CORPUSCULAR VOLUME 79.7 fl (82.0-101.0); MEAN PLATELET VOLUME 10.1 fl (7.4-10.4); MONOCYTE # 0.2 10^3/ul (0.3-0.9); MONOCYTES % 3.8 % (0.0-11.0); NEUTROPHIL # 3.3 10^3/ul (1.6-7.5); NEUTROPHILS % 69.8 % (39.0-77.0); PLATELET COUNT 269 10^3/UL (140-415); RED BLOOD COUNT 5.03 10^6/ul (4.70-6.10); RED CELL DISTRIBUTION WIDTH 14.4 % (11.5-14.5)
[2018-05-16 11:02] LABS: ALANINE AMINOTRANSFERASE 35 IU/L (13-69); ALBUMIN 4.9 g/dl (3.3-4.9); ALKALINE PHOSPHATASE 95 IU/L (42-121); ANION GAP 18 (5-13); ASPARTATE AMINO TRANSFERASE 55 IU/L (15-46); BILIRUBIN,INDIRECT 0.5 mg/dl (0-1.1); BILIRUBIN,TOTAL 0.5 mg/dl (0.2-1.3); BLOOD UREA NITROGEN 11 mg/dl (7-20); CALCIUM 8.7 mg/dl (8.4-10.2); CARBON DIOXIDE 25 mmol/L (21-31); CHLORIDE 102 mmol/L (97-110); CREATININE 0.53 mg/dl (0.61-1.24); Estimated GFR > 60 mL/min (>60); GLUCOSE 123 mg/dl (70-220); LIPASE 52 U/L (23-300); POTASSIUM 3.7 mmol/L (3.5-5.1); SODIUM 145 mmol/L (135-144); TOTAL PROTEIN 8.4 g/dl (6.1-8.1)
[2018-05-16] MEDS: KETOROLAC 15 MG INJ IV (11:16)
== END 2018-05-16 12:19 | disposition left against medical advice (07) ==
LOC: E/R 09:42
DX: F10.920 Alcohol use, unspecified with intoxication, uncomplicated (principal); R40.2142 Coma scale, eyes open, spontaneous, at arrival to emergency department; R40.2252 Coma scale, best verbal response, oriented, at arrival to emergency department; R40.2362 Coma scale, best motor response, obeys commands, at arrival to emergency department
CPT/HCPCS: 36415; 80053; 83690; 85025; 99284-25

== ENCOUNTER 2018-05-24 10:08 | Emergency (ER) | payer MEDICAID | END 2018-05-24 10:24 | disposition left against medical advice (07) | LOC: E/R 10:24 | DX: Z53.21 Procedure and treatment not carried out due to patient leaving prior to being seen by health care provider (principal) ==

== ENCOUNTER 2018-12-14 08:05 | Emergency (ER) | payer MEDICAID ==
[2018-12-14] MEDS ORDERED: ONDANSETRON (ODT) 4 MG TAB ODT (08:28)
[2018-12-14] MEDS ORDERED: FAMOTIDINE 20 MG TAB PO (08:30)
[2018-12-14 08:43] LABS: ADD MAN DIFF? NO
[2018-12-14 08:45] LABS: BASOPHILS % 0.8 % (0.0-2.0); EOSINOPHILS % 0.6 % (0.0-7.0); HEMATOCRIT 44.1 % (42.0-52.0); HEMOGLOBIN 15.3 g/dl (14.0-18.0); LYMPHOCYTES # 1.5 10^3/ul (0.8-2.9); LYMPHOCYTES % 40.8 % (15.0-51.0); MEAN CORPUSCULAR HEMOGLOBIN 28.8 pg (29.0-33.0); MEAN CORPUSCULAR HGB CONC 34.7 g/dl (32.0-37.0); MEAN CORPUSCULAR VOLUME 82.9 fl (82.0-101.0); MEAN PLATELET VOLUME 10.3 fl (7.4-10.4); MONOCYTE # 0.2 10^3/ul (0.3-0.9); MONOCYTES % 5.5 % (0.0-11.0); NEUTROPHIL # 1.9 10^3/ul (1.6-7.5); PLATELET COUNT 316 10^3/UL (140-415); RED BLOOD COUNT 5.32 10^6/ul (4.70-6.10); RED CELL DISTRIBUTION WIDTH 13.3 % (11.5-14.5)
[2018-12-14 08:45] LABS: WHITE BLOOD COUNT 3.6 10^3/ul (4.8-10.8)
[2018-12-14] MEDS: FAMOTIDINE 20 MG INJ IV (08:59)
[2018-12-14] MEDS: LIDOCAINE/MYLANTA 40 ML BTL PO (09:00)
[2018-12-14] MEDS: THIAMINE 100 MG TAB PO (09:00)
[2018-12-14] MEDS: ONDANSETRON 4 MG INJ IV (09:00)
[2018-12-14] MEDS: SOD CHLORIDE 0.9% 1,000 ML IV (09:00)
[2018-12-14] MEDS: FOLIC ACID 1 MG TAB PO (09:00)
[2018-12-14 09:06] LABS: ALANINE AMINOTRANSFERASE 41 IU/L (13-69); ALBUMIN 4.9 g/dl (3.3-4.9); ALBUMIN/GLOBULIN RATIO 1.32; ALKALINE PHOSPHATASE 93 IU/L (42-121); ANION GAP 15 (5-13); ASPARTATE AMINO TRANSFERASE 52 IU/L (15-46); BILIRUBIN,INDIRECT 0.9 mg/dl (0-1.1); BILIRUBIN,TOTAL 0.9 mg/dl (0.2-1.3); BLOOD UREA NITROGEN 9 mg/dl (7-20); CARBON DIOXIDE 27 mmol/L (21-31); CHLORIDE 100 mmol/L (97-110); CREATININE 0.64 mg/dl (0.61-1.24); Estimated GFR > 60 mL/min (>60); GLUCOSE 133 mg/dl (70-220); INR 0.95; LIPASE 70 U/L (23-300); POTASSIUM 3.5 mmol/L (3.5-5.1); PROTIME 12.8 Sec (11.9-14.9); SODIUM 142 mmol/L (135-144); TOTAL PROTEIN 8.6 g/dl (6.1-8.1)
== END 2018-12-14 10:36 | disposition home or self-care (01) ==
LOC: E/R 08:05
DX: K29.21 Alcoholic gastritis with bleeding (principal); F10.920 Alcohol use, unspecified with intoxication, uncomplicated; D72.810 Lymphocytopenia
CPT/HCPCS: 36415; 71045; 80053; 80307; 83690; 85025; 85610; 93005; 96374; 96375; 99285-25